=== PATIENT | male | born 1960 | race Caucasian/White ===

== ENCOUNTER 2020-10-04 22:46 | Inpatient (IN) | payer MEDICAID ==
[~2020-10-04] VITALS: Ht 175.3 cm; Wt 112.5 kg
--- NOTE | 2020-10-04 23:09 | NUR ---
PT BIB [facility], PER PT HE PLACED A FLASHLIGHT INTO HIS RECTUM. "IT WAS HER IDEA" IS WHAT THE PT SAYS. PER PT IT IS A SMALL FLASHLIGHT AND IT IS NOT TURNED ON AT THE MOMENT. MD TO BEDSIDE TO EVAL THE PT PRIOR TO XRAYS. PT A&OX4, NO ACUTE DISTRESS. C/O DISCOMFORT IN HIS RECTAL AREA.
[2020-10-04] MEDS ORDERED: FENTANYL PF 100 MCG/2ML IVPush ONE (23:30)
[2020-10-04] MEDS ORDERED: PROPOFOL 10 MG/ML, 20ML IVPush ONE (23:30)
[2020-10-04] MEDS ORDERED: PROPOFOL 10 MG/ML, 20ML ONE (23:33)
[2020-10-04] MEDS ORDERED: FENTANYL PF 100 MCG/2ML ONE (23:34)
--- NOTE | 2020-10-05 | NUR ---
PROCEDURE BEGAN AND CONSENTS SIGNED, AND PRE PROCEDURE NOTES TAKEN, WITH V/S. SEDATION MEDICINE READY AND MD TO BEDSIDE. PT ON O2 NC 4LPM, FULL CR MONITOR, AND ETCO2, 150MG PROPOFOL TOTAL GIVEN, WITH 50MCG OF FENTANYL SLOW IVP GIVEN. PT REACHED SEDATION LEVEL, AND ATTEMPT TO REMOVE FOREIGN BODY FROM RECTUM INITIATED. PER MD UNABLE TO FEEL MORE THAN JUST THE END OF THE FLASHLIGHT AND PT SEDATED MORE AND RELAXED THE OBJECT MOVED FURTHER UP THE PTS RECTUM AND UNABLE TO COLLECT OR REMOVE AT THIS TIME. PT ALLOWED TO RECOVER.
--- NOTE | 2020-10-05 00:15 | NUR ---
PT AT THIS TIME, AWAKENED, MAINTAINS AIRWAY INTACT, GOOD AERATION AND OXYGENATION. O2 SAT 98%. PT LYING ON HIS BACK WITH HEAD OF BED ELEVATED AND PT RESPONDS TO QUESTIONS. REMAINS ON O2 NC 4LPM, AND CR MONITOR.
--- NOTE | 2020-10-05 00:51 | NUR ---
RECEIVED REPORT FROM BRE RN PT APPEARS TO BE IN PAIN FROM FLASHLIGHT UP HIS RECTUM PT ATTACHED TO CARD/SP02/BP MONITORS. VSS BED IN LOW POSITIOON. CALL LIGHT AND BELONGINGS WITHIN REACH. RAIILS ENGAGED. WCTM
[2020-10-05] MEDS ORDERED: SODIUM CHLORIDE FLUSH 10ML SYR IVF PRN (01:30)
[2020-10-05] MEDS ORDERED: ONDANSETRON 2MG/ML, 2ML ONE (01:41)
[2020-10-05] MEDS ORDERED: MORPHINE SULFATE 4 MG/ML, 1ML ONE (01:41)
--- NOTE | 2020-10-05 01:48 | NUR ---
gave report to louisa stevenson
--- NOTE | 2020-10-05 01:49 | NUR ---
PT CONTINUALLY YELLING IN ROOM, "I'M IN SO MUCH PAIN, I NEED SOME DAMN PAIN MEDS NOW!" ERP NOTIFIED, PT MEDICTED PER EMAR. NOADDITIONAL NEEDS AT THIS TIME.
--- NOTE | 2020-10-05 01:57 | NUR ---
PT FEELING A LOT BETTER AFTER NEDICATIONS. PT IS NOT YELLING AND MOANING ANYMORE. ATTACHED TO MONITORS. VSS. [id number]
[2020-10-05] MEDS ORDERED: MORPHINE SULFATE 4 MG/ML, 1ML IVPush ONE (02:00)
[2020-10-05] MEDS ORDERED: ONDANSETRON 2MG/ML, 2ML IVPush ONE (02:00)
[2020-10-05 02:10] VITALS: BP 117/75
[2020-10-05 02:35] VITALS: BP 117/75
[2020-10-05] MEDS ORDERED: OXYcodone IR 5MG TABLET PO PRN (03:00)
[2020-10-05] MEDS ORDERED: morphine SULFATE 10 MG/ML, 1ML IVPush PRN (03:00)
[2020-10-05] MEDS ORDERED: ONDANSETRON ODT 4 MG PO PRN (03:00)
[2020-10-05] MEDS ORDERED: ONDANSETRON 2MG/ML, 2ML IVPush PRN (03:00)
[2020-10-05] MEDS ORDERED: SODIUM CHLORIDE 0.9% 1,000 ML IV SCH (03:00)
[2020-10-05] MEDS ORDERED: ACETAMINOPHEN 325 MG TABLET PO PRN (03:00)
[2020-10-05] MEDS ORDERED: PROMETHAZINE 25 MG/ML, 1ML IM PRN (03:00)
[2020-10-05] MEDS ORDERED: hydrALAzine 20 MG/ML, 1ML IVPush PRN (03:00)
[2020-10-05] MEDS ORDERED: MORPHINE SULFATE 4 MG/ML, 1ML IVPush PRN (04:30)
[2020-10-05 05:17] LABS: BASOPHILS % (AUTO) 0 % (0-1); EOSINOPHILS % (AUTO) 1 % (1-7); LYMPHOCYTES % (AUTO) 14 % (22-44); MEAN CORPUSCULAR HEMOGLOBIN 30.8 pg (27.5-34.5); MEAN CORPUSCULAR HGB CONC 33.5 g/dL (33.2-36.2); MEAN PLATELET VOLUME 10.5 fL (7.4-10.4); MONOCYTES % (AUTO) 11 % (2-9); NEUTROPHILS % (AUTO) 74 % (42-75); PLATELET COUNT 113 x10^3/uL (130-400); RED BLOOD COUNT 3.67 x10^6/uL (4.38-5.82); RED CELL DISTRIBUTION WIDTH 17.1 % (9.4-14.8)
[2020-10-05 05:29] LABS: MD NO
[2020-10-05 05:31] LABS: CALCIUM 8.5 mg/dL (8.5-10.1); CHLORIDE 107 mmol/L (98-107)
[2020-10-05 05:36] LABS: ALANINE AMINOTRANSFERASE 35 U/L (12-78); ALBUMIN 3.5 g/dL (3.4-5.0); ALKALINE PHOSPHATASE 168 U/L (45-117); ANION GAP 9 mmol/L (5-15); BILIRUBIN,TOTAL 1.4 mg/dL (0.2-1.0); CREATININE 0.87 mg/dL (0.7-1.3); TOTAL PROTEIN 6.7 g/dL (6.4-8.2)
[2020-10-05 06:25] VITALS: BP 110/65
[2020-10-05] MEDS ORDERED: BUPIVACAINE/PF 0.25% ONE (06:59)
[2020-10-05] MEDS ORDERED: EPINEPHRINE 1 MG/ML, 1ML ONE (06:59)
[2020-10-05] MEDS ORDERED: CHLORHEXIDINE 15 ML UDC ONE (07:11)
[2020-10-05] MEDS ORDERED: FENTANYL PF 250 MCG/5ML ONE (07:22)
[2020-10-05] MEDS ORDERED: MEPERIDINE/PF 25MG/0.5ML IVPush PRN (08:00)
[2020-10-05] MEDS ORDERED: FENTANYL PF 100 MCG/2ML IV PRN (08:00)
[2020-10-05] MEDS ORDERED: PROMETHAZINE 25 MG/ML, 1ML IVPush PRN (08:00)
[2020-10-05] MEDS ORDERED: HYDROmorphone 1 MG/ML, 1ML INJ IVPush PRN (08:00)
[2020-10-05] MEDS ORDERED: DIPHENHYDRAMINE 50 MG/ML, 1ML IVPush PRN (08:00)
[2020-10-05] MEDS ORDERED: OXYcodone 5 MG/5 ML ORAL.SOL UDC PO PRN (08:00)
[2020-10-05] MEDS ORDERED: hydrALAzine 20 MG/ML, 1ML IV PRN (08:00)
[2020-10-05] MEDS ORDERED: LABETALOL 5MG/ML, 20ML IV PRN (08:00)
[2020-10-05] MEDS ORDERED: HALOPERIDOL 5 MG/ML IV PRN (08:00)
[2020-10-05] MEDS ORDERED: PROPOFOL 10 MG/ML, 20ML ONE ×2 (08:15→11:00)
[2020-10-05] MEDS ORDERED: CEFOTETAN 2 GM ONE (11:00)
[2020-10-05] MEDS ORDERED: FENTANYL PF 100 MCG/2ML ONE (11:00)
[2020-10-05 12:10] VITALS: BP 143/71
[2020-10-05] MEDS ORDERED: HYDR-2214 PO (18:51)
[2020-10-05 20:03] VITALS: BP 138/75
== END 2020-10-05 20:07 | disposition home or self-care (01) | DRG 254 ==
LOC: ED 10-05 01:14 → EDIP 10-05 01:24 → 4NE 10-05 02:03
PROVIDERS: ADMIT Internal Medicine; ATTEND Hospitalist
PROC: 0DCP8ZZ Extirpation of Matter from Rectum, Via Natural or Artificial Opening Endoscopic (ICD-10-PCS; principal; 2020-10-05 07:30)
DX: T18.5XXA Foreign body in anus and rectum, initial encounter (principal); I50.9 Heart failure, unspecified; F17.200 Nicotine dependence, unspecified, uncomplicated; F12.10 Cannabis abuse, uncomplicated; F19.20 Other psychoactive substance dependence, uncomplicated; J44.9 Chronic obstructive pulmonary disease, unspecified; K62.5 Hemorrhage of anus and rectum; X58.XXXA Exposure to other specified factors, initial encounter; Y93.89 Activity, other specified; Y92.89 Other specified places as the place of occurrence of the external cause; Y99.8 Other external cause status; Z20.822 Contact with and (suspected) exposure to COVID-19
CPT/HCPCS: 36415; 71045; 74021; 80053; 83036; 83735; 84100; 84443; 85025; 87635; 88300; 93005; 96374; 96375; 99285; G0378; J0171; J2405; J2704; J3010; J2270